=== PATIENT | male | born 1950 | race Caucasian/White ===

== ENCOUNTER → 2017-04-13 | Day surgery (SDC) | payer OTHER ==
[~2017-04-13] VITALS: Ht 167.6 cm; Wt 71.5 kg
[~2017-04-13] MED LIST: ACETAMINOPHEN 1000 MG/100 ML 100 ML IV SCH; BUPIVACAINE LIPOSOME PF 1.3% 20 ML VIAL ONE; BUPIVACAINE/EPINEPHRINE 0.25% 50 ML VIAL ONE; CHLORHEXIDINE GLUCONATE 2 % 1 PACK (2 CLOTHS) TOPICAL PRN; KETOROLAC TROMETHAMINE 30 MG/ML (IVP) VIAL ONE; LACTATED RINGER'S 1000 ML IV PRN; METOPROLOL TARTRATE 25 MG TAB PO PRN; MIDAZOLAM HCL 5 MG/5 ML VIAL ONE; POVIDONE IODINE 5% (ANTISEPSIS KIT) 4 APPLICATIONS EACH NARE PRN; PROPOFOL 200 MG/20 ML AMP ONE; SODIUM CHLORID 0.9% 500 ML IV PRN; ceFAZolin 2 GM PREMIX 50 ML IV SCH; oxyCODONE/ACETAMINOPHEN 5 MG/325 MG TAB ONE
[2017-04-13 07:51] VITALS: PULSE 63
[2017-04-13 08:40] VITALS: PULSE 63
[2017-04-13 12:39] VITALS: BP 121/80; PULSE 51; RESP 16; TEMP 98; O2SAT 100
--- NOTE | 2017-04-13 16:04 | MP ---
cc: Francis Hernandez MD DATE OF OPERATION: 04/13/2017 DATE OF PROCEDURE: 04/13/2017 PREOPERATIVE DIAGNOSIS: Left inguinal hernia. POSTOPERATIVE DIAGNOSIS: Left inguinal hernia. PROCEDURE PERFORMED: Repair of left inguinal hernia with ProGrip mesh. SURGEON: Francis Hernandez MD SAS ADMINISTRATOR: Gertrude Jones MS3 ANESTHESIA: Local/MAC. OPERATIVE FINDINGS: The patient was found to have a very large indirect inguinal hernia, which had totally attenuated the inguinal floor. The sac extended far into the scrotum with no evidence of incarcerated viscera. No other abnormalities were noted. OPERATIVE PROCEDURE: The patient was brought to the operating room and after satisfactory sedation by anesthesia, the left groin was prepped and draped in the usual sterile fashion. A 1.3% Exparel was used to infiltrate the skin for local anesthesia and a transverse left inguinal incision was made, carried down sharply through the subcutaneous tissue, with the cautery being used for hemostasis. The incision was deepened to the external oblique fascia, which was opened in the direction of its fibers down to and through the external ring. The underside of the fascia was clean and the hernia sac was immediately encountered as it encompassed the spermatic cord. After dissecting free as much as the inguinal floor as could be accomplished using the cautery, the hernia sac was opened and then divided at its neck. The proximal hernia sac was dissected free from the cord structures down to the internal ring where it was then suture ligated with a 3-0 Vicryl suture. It was reduced within the properitoneal space without problem. Additional sac was left intact and in place. After isolating the spermatic cord along its entire length in the inguinal canal, the remainder of the inguinal canal was completely cleared of adhesions and the inguinal floor completely identified. It was seen to have virtually no transversalis and the internal oblique fascia was far distant. It was decided then to proceed with a modified Bassini repair. The internal oblique muscle was brought into close approximation with the shelving edge of the inguinal ligament using interrupted 0 Vicryl sutures. After the floor and the internal ring had been recreated in this fashion a piece of ProGrip mesh was cut to the appropriate shape and secured anterior to the repair by pressing its posterior Vicryl hooks into the surrounding tissue. Care was take to ensure adequate coverage both laterally and medially, well up onto the internal oblique muscle to the fascia, which had been identified. A single suture of 0 Prolene was then used to attach the mesh to the pubic symphysis without problem. The mesh was then checked and found to be in excellent contact circumferentially around the inguinal floor and secure the internal ring as well. Hemostasis was checked for and found to be satisfactory. The external oblique fascia was closed with a running 3-0 Vicryl suture. The subcutaneous tissue was closed with an interrupted 3-0 Vicryl suture and further Exparel was infiltrated into the surround tissue. The skin was then closed with interrupted 4-0 PDS subcuticular stitches. Steri-Strips were applied. The patient was then awakened and taken from the operating room, in satisfactory condition, having tolerated the procedure without problem. Estimated blood loss was less than 5 mL. The instrument, sponge, and needle counts were reported as being correct x 2 at the end of the procedure. MD MU Car/MOISÉS , 11:57 AM , 04:03 PM
== END | disposition home or self-care (01) ==
LOC: PHSDC 07:07
PROVIDERS: ATTEND Surgery
DX: K40.90 Unilateral inguinal hernia, without obstruction or gangrene, not specified as recurrent (principal)
CPT/HCPCS: 00830; 49505; 64425; C1781; C9290; J0131; J0690; J1885; J2250; J3010; J7120